=== PATIENT | male | born 1950 | race Caucasian/White ===

== ENCOUNTER → 2017-01-31 | Outpatient (CLI) | payer MEDICARE, OTHER ==
[2017-01-31 15:30] LABS: HEMOGLOBIN 8.1 gm/dl (14.0-17.5); RED BLOOD COUNT 2.85 M/UL (4.20-5.50); WHITE BLOOD COUNT 10.1 K/UL (4.5-11.0)
== END ==
LOC: LAB 14:35
DX: D50.0 Iron deficiency anemia secondary to blood loss (chronic) (principal)
CPT/HCPCS: 85025

== ENCOUNTER 2020-10-28 22:12 | Emergency (ER) | payer MEDICARE, OTHER ==
[~2020-10-28 22:12] MED LIST: ASPIRIN EC81 MG PO; ATORVASTATIN CA80 MG PO; CITALOPRAM HBR40 MG PO; ELAVIL 25 MG TA25 MG PO; ELIQUIS 5 MG TAB5 MG PO; ESSENTIAL DAIL1 EACH PO; FERROUS SULFAT325 MG PO; GLUCOPHAGE 500500 MG PO; LEVOFLOXACIN500 MG PO; LISINOPRIL20 MG PO; LOPRESSOR 25 MG25 MG PO; MULTAQ400 MG PO; NAMENDA10 MG PO; PROTONIX 40 MG40 M1 PO; RISPERDAL0.5 MG PO; VENTOLIN HFA 66.7 GM INH; XANAX0.5 MG PO
[2020-10-28 22:57] LABS: RED BLOOD COUNT 2.84 M/UL (4.20-5.50); WHITE BLOOD COUNT 7.2 K/UL (4.5-11.0)
[2020-10-28 23:01] LABS: HEMOGLOBIN 6.8 gm/dl (14.0-17.5)
[2020-10-28 23:18] LABS: BUN/CREATININE RATIO 16 (0-10)
[2020-10-29 05:15] LABS: HEMOGLOBIN 7.7 gm/dl (14.0-17.5); RED BLOOD COUNT 3.21 M/UL (4.20-5.50); WHITE BLOOD COUNT 7.1 K/UL (4.5-11.0)
== END 2020-10-29 06:55 | disposition home or self-care (01) ==
LOC: ER1 22:12
PROVIDERS: Family Medicine
DX: U07.1 COVID-19 (principal); D64.9 Anemia, unspecified; I48.91 Unspecified atrial fibrillation; F17.200 Nicotine dependence, unspecified, uncomplicated
CPT/HCPCS: 36430; 71045; 80053; 82550; 82553; 83605; 84484; 85025; 85027; 86850; 86900; 86901; 86920; 87040; 93005; 99285; P9016; U0002

== ENCOUNTER 2020-12-25 10:54 | Emergency (ER) | payer MEDICARE, OTHER ==
[2020-12-25 12:48] LABS: HEMOGLOBIN 9.6 gm/dl (14.0-17.5); RED BLOOD COUNT 3.94 M/UL (4.20-5.50); WHITE BLOOD COUNT 11.3 K/UL (4.5-11.0)
== END 2020-12-25 14:28 | disposition home or self-care (01) ==
LOC: ER1 10:54
PROVIDERS: Physician Assistant
DX: R39.198 Other difficulties with micturition (principal); I48.91 Unspecified atrial fibrillation; E11.9 Type 2 diabetes mellitus without complications; I10 Essential (primary) hypertension; F17.210 Nicotine dependence, cigarettes, uncomplicated; Z85.118 Personal history of other malignant neoplasm of bronchus and lung
CPT/HCPCS: 51798; 80053; 81001; 85025; 93005; 99283; 99284